=== PATIENT | female | born 1955 | race American Indian/Alaskan Native ===

== ENCOUNTER 2019-04-02 18:10 | Emergency (ER) | payer OTHER, MEDICARE ==
[2019-04-02 18:25] VITALS: BP 151/76
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
[2019-04-02] MEDS ORDERED: NORCO 5/325 PO ONE (20:33)
[2019-04-02] MEDS ORDERED: DECADRON IM ONE (20:33)
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
== END 2019-04-02 21:45 | disposition home or self-care (01) ==
LOC: ED 18:10
DX: S16.1XXA Strain of muscle, fascia and tendon at neck level, initial encounter (principal); S43.402A Unspecified sprain of left shoulder joint, initial encounter; M50.30 Other cervical disc degeneration, unspecified cervical region; I10 Essential (primary) hypertension; G43.909 Migraine, unspecified, not intractable, without status migrainosus; J44.9 Chronic obstructive pulmonary disease, unspecified; Z79.899 Other long term (current) drug therapy; V49.59XA Passenger injured in collision with other motor vehicles in traffic accident, initial encounter; Y93.89 Activity, other specified; Y92.410 Unspecified street and highway as the place of occurrence of the external cause; Y99.8 Other external cause status
CPT/HCPCS: 72040; 73030; 96372; 99283; J1100